=== PATIENT | female | born 1940 | race Caucasian/White ===

== ENCOUNTER 2017-04-18 16:57 | Emergency (ER) | payer OTHER ==
--- NOTE | 2017-04-18 17:07 | PDOC ---
Rapid Medical Evaluation Chief Complaint: Revisit, Lab Variance Medical Evaluation: 04/18/17 17:05 I have performed a brief in person evaluation of this patient. The patient presents with chief complaint of : "high potassium" states her son, the doctor called more than one week ago with the lab result Pertinent PE findings: no distress, vitasl stable I have ordered the following: cmp, cbc, The patient will proceed to the ER for further evaluation.
[2017-04-18 17:11] VITALS: TEMP 98.8; BMI 28.9
[2017-04-18 17:29] LABS: MCH 28.4 pg (25.7-33.7); MCHC 33.9 g/dl (32.0-36.0); MEAN CELL VOLUME 83.8 fl (80-96); MEAN PLT VOLUME 8.7 fl (7.5-11.1); PLATELET COUNT 451 K/MM3 (134-434); RDW 13.2 % (11.6-15.6); WHITE BLOOD COUNT 14.5 K/mm3 (4.0-10.0)
--- NOTE | 2017-04-18 17:56 | PDOC ---
History of Present Illness - General History Source: Patient, Family Exam Limitations: No Limitations - History of Present Illness Initial Comments: 04/18/17 18:13 The patient is a 77 year old female, with a significant past medical history of hypertension and diabetes, who presents to the emergency department sent by PCP for evaluation of elevated potassium for approximately 1.5 weeks. The patient reports going to see Dr. Hernandez 1.5 weeks ago, where she had bloodwork done. As per son, he received a call from Dr. Hernandez about 1 week ago stating patient had elevated potassium, and recommends further evaluation. Patient denies any flank pain, dysuria, hematuria, frequency, or urgency. Patient reports 1.5 week cough, occasionally productive of white sputum. She denies any associated fever, chills, sore throat, or rhinorrhea. She denies any chest pain , shortness of breath, diaphoresis, or palpitations. She denies any nausea, vomiting, diarrhea, or constipation. Patient reports returning from [place] about 2 months ago. Allergies: NKDA Past Surgical History: None reported. Social History: Non smoker. No ETOH or recreational drug use. PCP: Dr. Bee Water Pump Servicer: Dr. Hernandez <Nayeli Carbajal - Last Filed: 04/18/17 18:42> <Richard Penn - Last Filed: 04/18/17 19:08> - General Chief Complaint: Revisit, Lab Variance Stated Complaint: HIGH POTASSIUM Time Seen by Provider: 04/18/17 17:04 Past History <Nayeli Carbajal - Last Filed: 04/18/17 18:42> - Past Medical History COPD: No Diabetes: Yes - Suicide/Smoking/Psychosocial Hx Smoking History: Never smoked Hx Alcohol Use: No Drug/Substance Use Hx: No Substance Use Type: None <Richard Penn - Last Filed: 04/18/17 19:08> - Past Medical History Allergies/Adverse Reactions: Allergies Allergy/AdvReac Type Severity Reaction Status Date / Time No Known Allergies Allergy Verified 04/18/17 17:06 Home Medications: Ambulatory Orders Unobtainable [Unobtainable] 04/18/17 Review of Systems - Review of Systems Able to Perform ROS?: Yes Comments:: 04/18/17 18:13 CONSTITUTIONAL: No fever, no chills, no fatigue EYES: No visual changes ENT: No ear pain, no sore throat CARDIOVASCULAR: No chest pain, no palpitations RESPIRATORY: Yes cough productive of white sputum. No SOB GI: No abdominal pain, no nausea, no vomiting, no constipation, no diarrhea GENITOURINARY: No dysuria, no frequency, no hematuria MUSCULOSKELETAL: No back pain, no joint pain, no myalgias SKIN: No rash NEURO: No headache <Nayeli Carbajal - Last Filed: 04/18/17 18:42> *Physical Exam - Vital Signs Last Vital Signs Temp Pulse Resp BP Pulse Ox 98.8 F 93 H 20 156/63 96 04/18/17 17:03 04/18/17 17:03 04/18/17 17:03 04/18/17 17:03 04/18/17 17:03 - Physical Exam Comments: 04/18/17 18:14 CONSTITUTIONAL: Well-appearing; well-nourished; in no apparent distress HEAD: Normocephalic; atraumatic EYES: PERRL; EOM intact ENMT: External appears normal; normal oropharynx NECK: Supple; non-tender; no cervical lymphadenopathy CARD: Normal S1, S2; no murmurs, rubs, or gallops RESP: Normal chest excursion with respiration; breath sounds clear and equal bilaterally; no wheezes, rhonchi, or rales ABD: Soft, non-distended; non-tender; no palpable organomegaly, no palpable hernias EXT: Normal ROM in all four extremities; non-tender to palpation; distal pulses intact SKIN: Warm, dry, no rash NEURO: No focal neurological deficiencies. <Nayeli Carbajal - Last Filed: 04/18/17 18:42> - Vital Signs Last Vital Signs Temp Pulse Resp BP Pulse Ox 98.8 F 93 H 20 156/63 96 04/18/17 17:03 04/18/17 17:03 04/18/17 17:03 04/18/17 17:03 04/18/17 17:03 <Richard Penn - Last Filed: 04/18/17 19:08> ED Treatment Course - LABORATORY CBC & Chemistry Diagram: 04/18/17 17:15 04/18/17 17:15 - ADDITIONAL ORDERS Additional order review: Laboratory Results 04/18/17 17:15 Sodium 129 L Potassium 4.7 Chloride 94 L Carbon Dioxide 28 Anion Gap 7 L BUN 29 H Creatinine 1.4 H Creat Clearance w eGFR 36.27 Random Glucose 211 H Calcium 8.7 Total Bilirubin 0.4 AST 35 ALT 36 Alkaline Phosphatase 112 Total Protein 7.7 Albumin 3.0 L 04/18/17 17:15 RBC 3.48 L MCV 83.8 MCHC 33.9 RDW 13.2 MPV 8.7 <Nayeli Carbajal - Last Filed: 04/18/17 18:42> - LABORATORY CBC & Chemistry Diagram: 04/18/17 17:15 04/18/17 17:15 <Richard Penn - Last Filed: 04/18/17 19:08> Medical Decision Making - Medical Decision Making 04/18/17 19:05 Well-appearing 77-year-old female with history hypertension diabetes referred to the ER for elevated potassium of 6 on routine blood work obtained 10 days previously. Patient complains of mild cough productive of whitish sputum only. Patient denies nausea/vomiting/diarrhea/abdominal pain/chest pain/fever/chills. In the ER, patient is awake and alert, well-appearing, afebrile, mildly hypertensive. CMP reveals mild hyponatremia, normal potassium of 4.7 and mild hyperglycemia of 211. I discussed the case with Dr. key of renal. Patient will be encouraged to increase her by mouth intake of liquids. Cough is likely viral in nature and does not require antibiotics at this time. CBC shows mild leukocytosis with normal differential likely consistent with viral infection. Will discharge. <Richard Penn - Last Filed: 04/18/17 19:08> *DC/Admit/Observation/Transfer - Attestations Scribe Attestion: 04/18/17 18:14 Documentation prepared by Nayeli Carbajal, acting as medical anthropology director for Richard Penn MD. <Nayeli Carbajal - Last Filed: 04/18/17 18:42> - Attestations Physician Attestion: 04/18/17 19:05 The documentation was prepared by the scribe under my direct supervision. I have reviewed the documentation which correctly represents the findings, medical decision-making and critical action taken by me. <Richard Penn - Last Filed: 04/18/17 19:08> Diagnosis at time of Disposition: Hyperglycemia, Cough, Hyponatremia - Discharge Dispostion Disposition: HOME Condition at time of disposition: Stable - Referrals Referrals: Gildardo Hernandez MD [Primary Care Provider] - - Patient Instructions Printed Discharge Instructions: DI for Hyperglycemia -- Adult, Hyponatremia- Adult - Post Discharge Activity
[2017-04-18 18:01] LABS: ALK PHOS 112 U/L (45-117); ANION GAP 7 (8-16); BILIRUBIN,TOTAL 0.4 mg/dL (0.2-1.0); CALCIUM 8.7 mg/dL (8.5-10.1); CO2 28 mmol/L (21-32); CREATININE 1.4 mg/dL (0.55-1.02); GLUCOSE,RANDOM 211 mg/dL (74-106); SGOT/AST 35 U/L (15-37); SGPT/ALT 36 U/L (12-78); TOT PROT 7.7 g/dl (6.4-8.2)
[2017-04-18 19:23] VITALS: BP 150/62; PULSE 80
== END 2017-04-18 19:23 | disposition home or self-care (01) ==
LOC: JER 16:57
DX: E11.65 Type 2 diabetes mellitus with hyperglycemia (principal); E87.1 Hypo-osmolality and hyponatremia; B34.9 Viral infection, unspecified
CPT/HCPCS: 36415; 80053; 85027; 99282-25